=== PATIENT | female | born 1940 | race Caucasian/White ===

== ENCOUNTER → 2016-12-02 | Outpatient (CLI) | payer OTHER ==
[~2016-12-02] MED LIST: ASPIRIN81 M1 PO; CELEXA20 MG PO; EXFORGE 10-3201 TAB PO; FENOFIBRATE160 MG PO; FISH OIL500 MG PO; GARLIC1 CAP PO; GLIMEPIRIDE2 MG PO; GLUCOSAMINE CHO1 CA3 PO; IBUPROFEN600 MG PO; METFORMIN HCL500 M1 PO; MIRAPEX0.25 MG PO; MULTI-VITAMIN1 EAC1 PO; SIMVASTATIN10 MG PO; TOPROL XL PO
--- NOTE | ~2016-12-02 | US38 ---
[facility] A Service of [facility] & [facility] / [facility] RADIOLOGY TEXT RESULTS PATIENT: ROBERT HE LOCATION: CNIV : 42 UNIT #: [id number] AGE: [address]: Dheeraj Gallegos MD SEX: F ORDER DR: [id number] [facility] [address] [place], [place] [address] [id number] O MR#: [id number] Acc #: [id number] NAME: ROBERT HE : 1940 SEX: F STUDY DATE/TIME: 12/02/2016 9:04 UNIT: CNIV ROOM: STUDY DESCRIPTION: US Carotid W/Doppler Unilatera Attending Physician: Dheeraj Gallegos M.D. Referring Physician: Dheeraj Gallegos M.D. Ordering Physician: Dheeraj Gallegos M.D. Primary Care Physician: Maximino De León M.D. MEDICAL IMAGING REPORT This report is preliminary unless electronic signature is present EXAM Left carotid duplex, 12/02/2016. HISTORY Carotid endarterectomy 3 months ago. FINDINGS There is patent flow seen throughout the left common carotid, internal carotid, and external carotid arteries. There is some mild atherosclerosis seen in the left common carotid artery, which is diffuse, homogenous and regular-appearing. There is also some heterogeneous, echogenic, regular-appearing plaque seen in the left carotid bifurcation, extending to the proximal aspect of the internal carotid artery. The left common carotid artery peak velocity is 83 cm/sec. The left internal carotid artery peak systolic over end diastolic velocities are: proximal 106/18 cm/sec, mid 85/19 cm/sec, distal 97/23 cm/sec. The left external carotid artery peak velocity is 63 cm/sec, and vertebral artery 54 cm/sec. The left ICA:CCA ratio is 1.2. IMPRESSION 1. There is minimal to mild atherosclerosis of the left carotid artery, status post left carotid endarterectomy, which is not hemodynamically significant by duplex criteria (less than 50%). 2. Vertebral flow on the left is antegrade. Dictated by... Chandu Gooden M.D. THIS IS AN ELECTRONICALLY VERIFIED REPORT Chandu Gooden M.D. at 12/02/2016 12:03 PM [facility] A Service of [facility] RADIOLOGY TEXT RESULTS PATIENT: ROBERT HE LOCATION: [facility] : 41 UNIT #: [id number] AGE: [address]: Dheeraj Gallegos MD SEX: F ORDER DR: Sheldon TD: 12/02/2016 11:32 JOB #: [id number] MEDICAL IMAGING REPORT Page 1 of 1 COPY
== END | disposition home or self-care (01) ==
LOC: CNIV 08:39
DX: Z48.812 Encounter for surgical aftercare following surgery on the circulatory system (principal); I65.23 Occlusion and stenosis of bilateral carotid arteries; I65.22 Occlusion and stenosis of left carotid artery
CPT/HCPCS: 93882